=== PATIENT | female | born 1930 | race Caucasian/White ===

== ENCOUNTER 2016-05-06 11:17 | Inpatient (IN) | payer OTHER ==
[~2016-05-06] VITALS: Ht 160 cm; Wt 70.2 kg
[~2016-05-06 11:17] MED LIST: ASPI81TA27 PO; MULTCAP45; NIFE60TA75 PO
[2016-05-06] MEDS ORDERED: ASPirin 81 mg TAB PO ONE (12:15)
[2016-05-06 13:25] LABS: DEFINITIVE VIEW TRANSMISSION; Hematocrit 42.1 % (36.0-46.0); Hemoglobin 14.2 g/dL (12.2-16.2); Mean Corpuscular Hemoglobin 30.8 pg (28.0-32.0); Mean Corpuscular Hgb Conc. 33.8 g/dL (32.0-36.0); Mean Platelet Volume 9.5 fL (7.4-10.4); Platelet Count (auto) 378 10^3/uL (140-450); Red Cell Distribution Width 13.9 % (11.6-16.0); SUSPECT VIEW TRANSMISSION; White Blood Cell 21.3 10^3/uL (4.4-10.8)
[2016-05-06 13:44] LABS: Metamyelocytes % 0; Myelocytes % 0; Promyelocytes % 0; Reactive Lymphocytes 0
[2016-05-06 13:50] LABS: Albumin 2.9 g/dL (3.4-5.0); Alkaline Phosphatase 114 U/L (45-117); Anion Gap 12 (5-15); Aspartate Aminotransferase 13 U/L (15-37); BUN/Creatinine Ratio 16.3; Bilirubin, Total 0.7 mg/dL (0.2-1.0); Blood Urea Nitrogen 15 mg/dL (7-18); Calcium 8.8 mg/dL (8.5-10.1); Carbon Dioxide 29 mmol/L (21-32); Chloride 101 mmol/L (98-107); GFR African American 75 mL/min; GFR Non-African American 62 mL/min; Glucose 176 mg/dL (74-106); Potassium 3.3 mmol/L (3.5-5.1); Sodium 142 mmol/L (136-145); Total Protein 7.5 g/dL (6.4-8.2)
[2016-05-06 13:58] LABS: INR 1.04 (0.9-1.15); Partial Thromboplastin Time 26.1 sec (22.64-33.71); Prothrombin Time 10.7 sec (9.37-12.3)
[2016-05-06] MEDS ORDERED: cefTRIAXone 1GM/50ML D5W AE IV ONE (14:00)
[2016-05-06 14:09] LABS: B-Type Natriuretic Peptide 171.57 pg/mL (0-100)
[2016-05-06 14:10] LABS: Temperature: 22.9 C (20.0-25.0)
[2016-05-06 14:16] LABS: Platelet Estimate Adequate
[2016-05-06 14:17] LABS: Stomatocytes Few
[2016-05-06] MEDS ORDERED: POTASSIUM CHL 20 Meq TABLET PO ONE (14:30)
[2016-05-06] MEDS ORDERED: AZITHROMYCIN 500MG/D5W 250ML 250 ML IV ONE (14:30)
[2016-05-06 15:51] LABS: Lactic Acid 3.1 mmol/L (0.4-2.0)
[2016-05-06 15:59] LABS: REFLEX LACTIC ACID YES OR NO YES
[2016-05-06] MEDS ORDERED: MORPHINE SULF INJ 2 MG/ML SYRINGE 1ML IV PRN (16:00)
[2016-05-06] MEDS ORDERED: ONDANSETRON HCL 4 MG/2 ML VIAL IV PRN (16:00)
[2016-05-06] MEDS ORDERED: HYDROcodone-ACET 5/325MG TAB PO PRN (16:00)
[2016-05-06] MEDS ORDERED: METOPROLOL TARTRATE 25 MG TAB PO ONE (16:00)
[2016-05-06] MEDS ORDERED: KETOROLAC TROMETH 30 MG/ML 1ML VIAL IV ONE (16:00)
[2016-05-06] MEDS: SOD CHL 0.45% WITH 20MEQ KCL 1,000 ML IV SCH (16:25)
[2016-05-06 16:51] LABS: Lactic Acid 2.8 mmol/L (0.4-2.0)
[2016-05-06 16:56] LABS: REFLEX LACTIC ACID YES OR NO NO
[2016-05-06 20:00] VITALS: BP 126/65
[2016-05-06 22:00] VITALS: BP 126/65
[2016-05-06] MEDS: METOPROLOL TARTRATE 25 MG TAB PO SCH (22:43)
[2016-05-07 04:48] LABS: Urine Bilirubin Negative (Negative); Urine Blood Negative /uL (Negative); Urine Color Yellow (Yellow); Urine Glucose Normal (Normal); Urine Ketone Negative (Negative); Urine Mucus FEW (None Seen); Urine Nitrite Negative (Negative); Urine RBC <1 /hpf (0 - 4); Urine Squamous Epithelial Cell FEW /hpf (<5); Urine Urobilinogen Normal (Negative); Urine pH 5.5 (5.0-8.0)
[2016-05-07 05:18] VITALS: BP 124/63
[2016-05-07] MEDS: SOD CHL 0.45% WITH 20MEQ KCL 1,000 ML IV SCH ×2 (05:20→18:08)
[2016-05-07 05:36] LABS: Basophils # (auto) 0.1 uL; Basophils % (auto) 0.3 % (0.0-2.0); DEFINITIVE VIEW TRANSMISSION; Eosinophils # (auto) 0.1 uL; Eosinophils % (auto) 0.8 % (0.0-7.0); Hematocrit 35.7 % (36.0-46.0); Lymphocytes # (auto) 3.2 uL; Lymphocytes % (auto) 20.5 % (10.0-50.0); Mean Corpuscular Hemoglobin 30.5 pg (28.0-32.0); Mean Corpuscular Hgb Conc. 33.6 g/dL (32.0-36.0); Mean Corpuscular Volume 90.9 fL (80.0-100.0); Mean Platelet Volume 9.1 fL (7.4-10.4); Monocytes # (auto) 1.7 uL; Monocytes % (auto) 10.5 % (0.0-12.0); Neutrophils # (auto) 10.7 uL; Neutrophils % (auto) 67.9 % (37.0-80.0); Platelet Count (auto) 355 10^3/uL (140-450); Red Cell Distribution Width 13.5 % (11.6-16.0); White Blood Cell 15.8 10^3/uL (4.4-10.8)
[2016-05-07 06:01] LABS: Calcium 7.7 mg/dL (8.5-10.1); Potassium 3.8 mmol/L (3.5-5.1)
[2016-05-07 06:06] LABS: BUN/Creatinine Ratio 23.1
[2016-05-07 08:00] VITALS: BP_SYST 129; BP_SYST 140; BP_DIAS 58; BP_DIAS 59
[2016-05-07] MEDS: cefTRIAXone 1GM/50ML D5W 50 ML IV SCH (08:45)
[2016-05-07] MEDS: AZITHROMYCIN 500MG/D5W 250ML 250 ML IV SCH (09:47)
[2016-05-07] MEDS: METOPROLOL TARTRATE 25 MG TAB PO SCH ×2 (09:48→22:34)
[2016-05-07 13:00] VITALS: BP 129/57
[2016-05-07 16:30] VITALS: BP 146/63
[2016-05-07 22:00] VITALS: BP 141/73
[2016-05-08] VITALS (7 sets, daily range): BP systolic 142–156; BP diastolic 55–78
[2016-05-08] MEDS: AZITHROMYCIN 500MG/D5W 250ML 250 ML IV SCH (08:13)
[2016-05-08] MEDS: SOD CHL 0.45% WITH 20MEQ KCL 1,000 ML IV SCH (08:13)
[2016-05-08] MEDS: cefTRIAXone 1GM/50ML D5W 50 ML IV SCH (08:13)
[2016-05-08] MEDS: METOPROLOL TARTRATE 25 MG TAB PO SCH ×2 (08:14→22:29)
[2016-05-08] MEDS ORDERED: POTASSIUM CHLORIDE 8 MEQ TAB PO ONE (14:00)
[2016-05-08] MEDS ORDERED: HCTZ 25 MG TAB PO ONE (14:00)
[2016-05-09] VITALS (7 sets, daily range): BP systolic 130–153; BP diastolic 66–91
[2016-05-09 06:26] LABS: Basophils # (auto) 0 uL; Basophils % (auto) 0.4 % (0.0-2.0); Eosinophils # (auto) 0.5 uL; Eosinophils % (auto) 5.4 % (0.0-7.0); Hematocrit 36.9 % (36.0-46.0); Hemoglobin 12.2 g/dL (12.2-16.2); Lymphocytes # (auto) 2.4 uL; Lymphocytes % (auto) 26.2 % (10.0-50.0); Mean Corpuscular Hemoglobin 30.2 pg (28.0-32.0); Mean Corpuscular Volume 91.5 fL (80.0-100.0); Mean Platelet Volume 8.8 fL (7.4-10.4); Monocytes # (auto) 1.1 uL; Monocytes % (auto) 11.6 % (0.0-12.0); Neutrophils # (auto) 5.3 uL; Neutrophils % (auto) 56.4 % (37.0-80.0); Platelet Count (auto) 426 10^3/uL (140-450); Red Cell Distribution Width 13.4 % (11.6-16.0); White Blood Cell 9.3 10^3/uL (4.4-10.8)
[2016-05-09 06:56] LABS: BUN/Creatinine Ratio 16.4; Calcium 8.6 mg/dL (8.5-10.1); Potassium 3.9 mmol/L (3.5-5.1)
[2016-05-09] MEDS: AZITHROMYCIN 500MG/D5W 250ML 250 ML IV SCH (08:14)
[2016-05-09] MEDS: cefTRIAXone 1GM/50ML D5W 50 ML IV SCH (08:15)
[2016-05-09] MEDS: POTASSIUM CHLORIDE 8 MEQ TAB PO SCH (08:15)
[2016-05-09] MEDS: HCTZ 25 MG TAB PO SCH (08:16)
[2016-05-09] MEDS: METOPROLOL TARTRATE 25 MG TAB PO SCH ×3 (08:17→22:01)
[2016-05-09] MEDS ORDERED: POTA8TAB2 PO (08:59)
[2016-05-09] MEDS ORDERED: MET25T PO (08:59)
[2016-05-09] MEDS ORDERED: LEVO750T64 PO (08:59)
[2016-05-09] MEDS ORDERED: PANT40T PO (08:59)
[2016-05-09] MEDS ORDERED: PANTOPRAZOLE 40 MG TAB PO ONE (09:00)
[2016-05-09] MEDS ORDERED: LEVOFLOXACIN 250 MG TAB PO ONE (09:00)
[2016-05-09] MEDS ORDERED: guaiFENesin-DEXTROMETHORPHAN 5ML SYR PO PRN (16:00)
[2016-05-09] MEDS ORDERED: guaiFENesin-DEXTROMETHORPHAN 5ML SYR PO ONE (16:00)
[2016-05-09] MEDS ORDERED: ALBUTEROL SULF 2.5 MG/0.5ML(0.5%) NEB SOLN NEB PRN (16:00)
[2016-05-09] MEDS ORDERED: LORazepam 0.5 MG TAB PO PRN (16:00)
[2016-05-09] MEDS ORDERED: IPRATROPIUM BROM 0.5 MG/2.5ML INH SOL NEB PRN (16:00)
[2016-05-09] MEDS ORDERED: IOHEXOL 350 MG/ML 100ML IJ ONE (17:39)
[2016-05-09] MEDS: ALBUTEROL SULF 2.5 MG/0.5ML(0.5%) NEB SOLN NEB SCH (19:51)
[2016-05-09] MEDS: IPRATROPIUM BROM 0.5 MG/2.5ML INH SOL NEB SCH (19:52)
[2016-05-09] MEDS ORDERED: LORazepam 0.5 MG TAB PO ONE (22:00)
[2016-05-10] MEDS: IPRATROPIUM BROM 0.5 MG/2.5ML INH SOL NEB SCH
[2016-05-10] MEDS: ALBUTEROL SULF 2.5 MG/0.5ML(0.5%) NEB SOLN NEB SCH
[2016-05-10 05:00] VITALS: BP 123/67
[2016-05-10 09:00] VITALS: BP 123/48
[2016-05-10] MEDS: POTASSIUM CHLORIDE 8 MEQ TAB PO SCH (09:30)
[2016-05-10] MEDS: METOPROLOL TARTRATE 25 MG TAB PO SCH (09:30)
[2016-05-10] MEDS: HCTZ 25 MG TAB PO SCH (09:31)
[2016-05-10] MEDS ORDERED: LEVOFLOXACIN 250 MG TAB PO SCH (10:00)
[2016-05-10 11:14] VITALS: BP 123/48
[2016-05-10 12:53] VITALS: BP 131/64
[2016-05-11] MEDS ORDERED: LEVOFLOXACIN 250 MG TAB PO SCH (16:30)
== END 2016-05-10 14:50 | disposition home or self-care (01) | DRG 871 ==
LOC: ER 11:17 → EDUNIT# 11:18 → OVERFLOW 11:18 → WEST WING 19:40
PROVIDERS: ADMIT Internal Medicine; ATTEND Internal Medicine
DX: A41.9 Sepsis, unspecified organism (principal); J15.8 Pneumonia due to other specified bacteria; J96.00 Acute respiratory failure, unspecified whether with hypoxia or hypercapnia; E44.0 Moderate protein-calorie malnutrition; I50.42 Chronic combined systolic (congestive) and diastolic (congestive) heart failure; I11.0 Hypertensive heart disease with heart failure; E86.0 Dehydration; R00.0 Tachycardia, unspecified; E87.6 Hypokalemia; F41.9 Anxiety disorder, unspecified; M19.90 Unspecified osteoarthritis, unspecified site; M81.0 Age-related osteoporosis without current pathological fracture; Z68.27 Body mass index [BMI] 27.0-27.9, adult; Z90.49 Acquired absence of other specified parts of digestive tract; Z98.890 Other specified postprocedural states
CPT/HCPCS: 36415; 36600; 71010; 71020; 71275; 80048; 80053; 81001; 82805; 83605; 83735; 83880; 84484; 85007; 85025; 85027; 85379; 85610; 85730; 87040; 93005; 93306; 94640; 94761; 96365; 96366; 96375; J0696; J1885

== ENCOUNTER 2016-08-15 08:08 | Emergency (ER) | payer OTHER ==
[~2016-08-15] VITALS: Ht 160 cm; Wt 66.7 kg
[~2016-08-15 08:08] MED LIST changes: +LEVO750T64 PO; +MET25T PO; +PANT40T PO; +POTA8TAB2 PO
[2016-08-15 08:57] LABS: Basophils # (auto) 0 uL; Basophils % (auto) 0.7 % (0.0-2.0); CONDITION Y; Eosinophils # (auto) 0.2 uL; Eosinophils % (auto) 3.1 % (0.0-7.0); Hematocrit 42.4 % (36.0-46.0); Hemoglobin 14.2 g/dL (12.2-16.2); Lymphocytes # (auto) 2.7 uL; Lymphocytes % (auto) 43.6 % (10.0-50.0); Mean Corpuscular Hemoglobin 30.9 pg (28.0-32.0); Mean Corpuscular Hgb Conc. 33.5 g/dL (32.0-36.0); Mean Corpuscular Volume 92.1 fL (80.0-100.0); Mean Platelet Volume 8.7 fL (7.4-10.4); Monocytes # (auto) 0.5 uL; Monocytes % (auto) 8.1 % (0.0-12.0); Neutrophils # (auto) 2.8 uL; Neutrophils % (auto) 44.5 % (37.0-80.0); Platelet Count (auto) 308 10^3/uL (140-450); Red Cell Distribution Width 13.8 % (11.6-16.0); White Blood Cell 6.2 10^3/uL (4.4-10.8)
[2016-08-15 09:24] LABS: Albumin 3.8 g/dL (3.4-5.0); Alkaline Phosphatase 83 U/L (45-117); Anion Gap 7 (5-15); Aspartate Aminotransferase 16 U/L (15-37); BUN/Creatinine Ratio 12.5; Bilirubin, Total 0.5 mg/dL (0.2-1.0); Blood Urea Nitrogen 9 mg/dL (7-18); Calcium 8.9 mg/dL (8.5-10.1); Carbon Dioxide 31 mmol/L (21-32); Chloride 104 mmol/L (98-107); GFR African American 99 mL/min; GFR Non-African American 82 mL/min; Glucose 121 mg/dL (74-106); Magnesium 2.2 mg/dL (1.6-2.6); Potassium 4.2 mmol/L (3.5-5.1); Sodium 142 mmol/L (136-145); Total Protein 7.2 g/dL (6.4-8.2)
[2016-08-15 09:59] VITALS: BP 155/76
== END 2016-08-15 10:05 | disposition home or self-care (01) ==
LOC: ER 08:08
DX: F41.9 Anxiety disorder, unspecified (principal); E11.9 Type 2 diabetes mellitus without complications; I10 Essential (primary) hypertension; M19.90 Unspecified osteoarthritis, unspecified site; Z90.710 Acquired absence of both cervix and uterus; Z98.51 Tubal ligation status; Z79.82 Long term (current) use of aspirin; Z88.0 Allergy status to penicillin
CPT/HCPCS: 36415; 71020; 80053; 83735; 84484; 85025; 93005; 94761

== ENCOUNTER → 2017-08-11 | Outpatient (CLI) | payer OTHER ==
[~2017-08-11] MED LIST changes: +NIFE-31 PO; -NIFE60TA75 PO
[2017-08-11 08:57] LABS: Basophils # (auto) 0 uL; Basophils % (auto) 0.4 % (0.0-2.0); Eosinophils # (auto) 0.2 uL; Eosinophils % (auto) 2.6 % (0.0-7.0); Hematocrit 41.1 % (36.0-46.0); Hemoglobin 13.7 g/dL (12.2-16.2); Lymphocytes # (auto) 2.5 uL; Lymphocytes % (auto) 34.7 % (10.0-50.0); Mean Corpuscular Hemoglobin 31.1 pg (28.0-32.0); Mean Corpuscular Hgb Conc. 33.4 g/dL (32.0-36.0); Mean Corpuscular Volume 93.2 fL (80.0-100.0); Monocytes # (auto) 0.8 uL; Monocytes % (auto) 10.5 % (0.0-12.0); Neutrophils # (auto) 3.7 uL; Neutrophils % (auto) 51.8 % (37.0-80.0); Platelet Count (auto) 400 10^3/uL (140-450); Red Blood Cells 4.41 10^6/uL (4.0-5.20); Red Cell Distribution Width 13.4 % (11.8-14.3); White Blood Cell 7.2 10^3/uL (4.4-10.8)
[2017-08-11 09:44] LABS: Albumin 3.5 g/dL (3.4-5.0); BUN/Creatinine Ratio 27.8; Potassium 4.2 mmol/L (3.5-5.1); Total Protein 7.2 g/dL (6.4-8.2)
== END | disposition home or self-care (01) ==
LOC: LAB 08:04
PROVIDERS: ATTEND Family Medicine
DX: I11.0 Hypertensive heart disease with heart failure (principal); I50.42 Chronic combined systolic (congestive) and diastolic (congestive) heart failure; E11.9 Type 2 diabetes mellitus without complications; K21.9 Gastro-esophageal reflux disease without esophagitis; E78.5 Hyperlipidemia, unspecified; F41.9 Anxiety disorder, unspecified; E78.00 Pure hypercholesterolemia, unspecified; Z79.82 Long term (current) use of aspirin
CPT/HCPCS: 36415; 80053; 80061; 82607; 83036; 85025

== ENCOUNTER → 2017-08-28 | Outpatient (CLI) | payer OTHER | END | disposition home or self-care (01) | LOC: LAB 09:05 | PROVIDERS: ATTEND Family Medicine | DX: I13.0 Hypertensive heart and chronic kidney disease with heart failure and stage 1 through stage 4 chronic kidney disease, or unspecified chronic kidney disease (principal); E11.22 Type 2 diabetes mellitus with diabetic chronic kidney disease; I50.42 Chronic combined systolic (congestive) and diastolic (congestive) heart failure; N18.2 Chronic kidney disease, stage 2 (mild); F41.9 Anxiety disorder, unspecified; K21.9 Gastro-esophageal reflux disease without esophagitis; R94.6 Abnormal results of thyroid function studies; E78.5 Hyperlipidemia, unspecified | CPT/HCPCS: 36415; 84443 ==